=== PATIENT | male | born 2005 | race Hispanic/Latino ===

== ENCOUNTER 2024-05-19 03:16 | Emergency (ER) | payer OTHER ==
[~2024-05-19] VITALS: Ht 162.6 cm; Wt 56.0 kg
[2024-05-19] MEDS ORDERED: ACETAMINOPHEN 500 MG TAB PO ONE (03:25)
[2024-05-19] MEDS ORDERED: IBUPROFEN 600 MG/TAB PO ONE (03:25)
[2024-05-19 03:44] LABS: BASO% 0.5 % (0-3); EOS% 0.3 % (0-8); HEMATOCRIT 41.4 % (39.0-50.0); HEMOGLOBIN 14.4 g/dl (14.0-18.0); IMMATURE GRANULOCYTES 0.2 % (0.0-5.0); LYMPH% 12.5 % (15-41); MEAN CELL VOLUME 85.2 fL CALC (80.0-100.0); MEAN CORPUSCULAR HGB 29.6 pG CALC (26.0-32.0); MEAN CORPUSCULAR HGB CONC 34.8 g/dL CAL (32.0-36.0); MONO% 5.4 % (2-13); NEUT# 8.3 thou/uL (1.82-7.42); NEUT% 81.1 % (42-76); RED BLOOD COUNT 4.86 mill/uL (4.70-6.10); RED CELL DISTRI WIDTH 13.1 % (11.5-15.5)
[2024-05-19 03:51] LABS: ALBUMIN 4.9 g/dL (3.2-5.0); BILIRUBIN, TOTAL 0.4 mg/dL (0.2-1.3); POTASSIUM 3.4 mmol/l (3.5-5.1); TOTAL PROTEIN 8.1 g/dL (6.3-8.2)
[2024-05-19 05:59] VITALS: BP 119/100
== END 2024-05-19 05:59 | disposition home or self-care (01) | DRG 605 ==
LOC: ED 03:16
PROVIDERS: Family Medicine
DX: S00.33XA Contusion of nose, initial encounter (principal); F10.129 Alcohol abuse with intoxication, unspecified; Y90.5 Blood alcohol level of 100-119 mg/100 ml; Y04.0XXA Assault by unarmed brawl or fight, initial encounter; Y92.009 Unspecified place in unspecified non-institutional (private) residence as the place of occurrence of the external cause; F17.210 Nicotine dependence, cigarettes, uncomplicated